=== PATIENT | female | born 1955 | race Caucasian/White ===

== ENCOUNTER 2020-03-28 09:24 | Outpatient (CLI) | payer BC, SELFPAY ==
--- NOTE | 2020-03-28 09:35 | MM_ITS ---
WS: [id number] BILATERAL DIGITAL SCREENING MAMMOGRAM WITH CAD CLINICAL INFORMATION: SCREEN HISTORY: Screening mammogram. No current complaints. COMPARISON: June 16, 2018 TECHNIQUE: Bilateral CC and MLO views. FINDINGS: Fatty-replaced breasts bilaterally. No suspicious focal mass, asymmetry, calcifications, or saas architect ural distortion. No evidence of malignancy. Punctate calcifications. MM/[id number] IMPRESSION: BI-RADS: 2-Benign FOLLOW UP: 1 Year Follow-up Recommend return to annual screening mammography.
== END 2020-03-28 09:25 | disposition home or self-care (01) ==
LOC: RADSHAW 09:30
PROVIDERS: PCP Internal Medicine; Visit Provider Internal Medicine
DX: Z12.31 Encounter for screening mammogram for malignant neoplasm of breast (principal)
CPT/HCPCS: 77067

== ENCOUNTER 2020-11-02 17:19 | Emergency (ER) | payer BC, SELFPAY ==
[2020-11-02 17:43] VITALS: BP 156/86; PULSE 80; RESP 15; TEMP 36.4; O2SAT 98; BMI 33.7
--- NOTE | 2020-11-02 18:55 | XRR_ITS ---
PROCEDURE INFORMATION: Exam: XR Right Hand Exam date and time: 11/02/2020 6:59 PM Age: 65 years old Clinical indication: Injury or trauma; Other: Cat bite; Puncture; Hand; Right TECHNIQUE: Imaging protocol: XR Right hand. Views: 1 or 2 views. COMPARISON: No relevant prior studies available. FINDINGS: Bones/joints: There is focal cortical thickening in the posterior right 2nd proximal phalanx. The bones are otherwise intact and in normal alignment. Soft tissues: Normal. XR/XR hand RT 2V [id number] IMPRESSION: 1. No fracture or acute finding. 2. Probable exostosis in the 2nd proximal phalanx.
--- NOTE | 2020-11-02 18:59 | ED_ITS ---
HPI - Animal Bite General: Chief Complaint: Animal Bite Stated Complaint: ANIMAL BITE ON R HAND Time Seen by Provider: 11/02/20 18:42 History of Present Illness: HPI narrative: cat bite to right hand complaint: animal bite Onset (ago): minute(s) (90) Animal: cat Description of animal: appeared well Mechanism: bite Location: other (right hand ) Location - Extremities: Right: hand (thenar eminence ) Associated symptoms: Reports bleeding Review of Systems General: Reports: 10 or more systems reviewed and unremarkable except in HPI and below Skin/Breast: Reports: new lesions (small laceration to right thenar eminence approximately 1.0x0.1x0.3cm.) Physical Exam Const: COMMON NORMALS: no acute distress, patient oriented x3, no limitations and alert GENERAL APPEARANCE: cooperative and comfortable ORIENTATION/CONSCIOUSNESS: Yes awake, Yes oriented to person, Yes oriented to place and Yes oriented to time HENMT: COMMON NORMALS: normocephalic, atraumatic, external ears normal, EAC's normal, TM's normal bilaterally and Normal external nose present HEAD & SCALP: normal to inspection, normocephalic and atraumatic FACE & SINUS: normal facial exam, sinuses nontender and face symmetric NOSE: Normal external nose present, Normal nares present and No nasal discharge present EXTERNAL EAR: Yes external ears normal EXTERNAL AUDITORY CANAL: EAC's normal TYMPANIC MEMBRANE: TM's normal bilaterally MOUTH: Normal oral and palatal mucosa present, lip normal and tongue normal THROAT: posterior oropharynx normal, tonsils normal and uvula midline Eye: COMMON NORMALS: Equal, round and reactive pupils present, EOMs intact bilaterally and conjunctivae normal GENERAL EYE: appearance normal, both eyes and all related structures and normal light reflex EYELID: eyelids normal CONJUNCTIVA: Yes conjunctivae normal PUPIL: Yes Equal, round and reactive pupils present EOM: Yes EOM abnormal DIRECT OPHTHALMOSCOPY: Yes normal light reflex Neck/C-Spine: COMMON NORMALS: full ROM, no lymphadenopathy, supple, no meningeal signs, no JVD and Thyroid normal GENERAL: Yes normal visual insp ection THYROID: Thyroid normal CERVICAL SPINE: Yes cervical ROM normal and Yes normal cervical lordosis Lymph: LYMPHATIC: no lymphadenopathy noted Chest: COMMONS NORMALS: normal inspection of the chest and normal palpation of entire chest wall Resp: COMMON NORMALS: normal respiratory effort, No retractions and clear to auscultation bilaterally AUSCULTATION: clear to auscultation bilaterally Cardio: COMMON NORMALS: no JVD, regular rate, regular rhythm, S1 normal heart sound present, S2 normal heart sound present, No gallops present (Cardio), No clicks present (Cardio), No murmurs present (Cardio), No rub (Cardio) and Peripheral pulses 2+ throughout RATE: regular rate RHYTHM: regular rhythm HEART SOUNDS: S1 normal heart sound present and S2 normal heart sound present PERIPHERAL PULSES: Peripheral pulses 2+ throughout GI: COMMON NORMALS: Normal to inspection, nondistended, normoactive bowel sounds present, Soft to palpation, non-tender and no masses PALPATION: Yes Soft to palpation : COMMON NORMALS: Yes no CVA tenderness and Yes normal external appearance BLADDER/KIDNEY EXAM: Yes no CVA tenderness Back/Pelvis: COMMON NORMALS: no CVA tenderness, thoracic and lumbar spine normal to inspection, no thoracic nor lumbar tenderness and thoraco-lumbar ROM normal Extremity: COMMON NORMALS: normal to inspection, full ROM, capillary refill normal, no joint enlargement, no clubbing, cyanosis or edema, no calf tenderness and no pedal edema GENERAL: Yes normal exam except as noted RIGHT UPPER EXTREMITY: Yes hand & digits (small cat bite to right thenar eminence; 1x0.1x0.3cm ) Right hand and digits: Yes ROM exam (normal) and Yes neurovascular exam (intact) Neuro: COMMON NORMALS: patient oriented x3, moves all extremities, no focal motor deficits, no sensory deficits noted and gait normal SENSORIUM/ORIENTATION: Yes alert, Yes oriented to person, Yes oriented to place and Yes oriented to time MENINGEAL SIGNS: Yes no meningeal signs Psych: COMMON NORMALS: mental status grossly normal, Normal thought process present, cooperative, normal affect, speech normal and activity/motor behavior normal SPEECH: Yes normal speech THOUGHT PROCESS: Normal thought process present Skin: COMMON NORMALS: no rashes or lesions noted, no wounds and turgor normal GENERAL SKIN EXAM: no rashes or lesions noted and turgor normal Course ED course: Pt presents to ER after cat bite that occurred two hours ago. There is cat that regularly appears in her neighborhood. She was potting a plant and the cat approached seeking attention and she gave it water. She believes it was hungry and just bit her when she put the bowl down. It did not appear ill. She is on blood thinners and cleansed the area thoroughly before coming to the er. Hemostasis achieved upon my exam. Reevaluation(s): Reevaluation #1: Pt wound has been cleansed, vaccinations given, and antibx ordered. Wound care follow up as needed. Return for rabies shots as ordered. Stable for DC. Time: 20:21 Vital Signs: Vital signs: Vital Signs Temperature 97.6 F 11/02/20 17:43 Pulse Rate 80 11/02/20 17:43 Respiratory Rate 15 11/02/20 17:43 Blood Pressure 156/86 11/02/20 17:43 Pulse Oximetry 98 11/02/20 17:43 MDM - Animal Bite Imaging Data^: Other Xray: My impression: Negative for FB or acute fx Discharge Plan Discharge Patient Disposition: Home Clinical Impression: Bite by animal Condition: Stable Prescriptions: New Augmentin 875-125 mg tablet 1 tab PO BID Qty: 20 RF: 0 Discharge Orders: Discharge ED (Routine); Ordered 11/02/20 Ordered By: Cristel Mary Referrals: Hua Luevano DO [Primary Care Provider] - Discharge Diet: Advance as tolerated Discharge Activity: Resume usual activity Patient Instructions: Opioid Safety Activity Restrictions/Additional Instructions: You will need to return to either GI or ER for shots on day 3, 7, and 14. Cleanse wound daily, apply neosporin and dry gauze, call if any concerns for infection fever. Coding Level of Care Code ED Integrity Engineer for Jim Fwhien Exam Comprehensive
[2020-11-02] MEDS: tetanus-dipt-pertussis 0.5 mL SDV IM (19:37)
[2020-11-02] MEDS: rabies vaccine 2.5 unit SDV IM (19:48)
--- NOTE | 2020-11-02 20:12 | PC.NURSE ---
Wound irrigated and cleaned and dressing applied to right hand at this time per CAFETERIA CASHIER Usman's instructions. Pt tolerated well.
[2020-11-02] MEDS: amoxicillin-clav 875-125 mg Tablet 1 TAB PO (20:22)
[2020-11-02 20:37] VITALS: BP 150/103; PULSE 92; RESP 18; O2SAT 92
--- NOTE | 2020-11-04 09:35 | DCPLANNER ---
dining room manager had message to schedule a follow up appointment for patient with Wound Care. dining room manager called the Wound Care clinic, spoke with Lennie, gave clinic patients information. A follow up appointment was scheduled for Wednesday, November 11, 2020 at 1:[address] Mckeon. dining room manager called patient and gave patient the appointment information.
--- NOTE | 2020-11-21 14:38 | DCPLANNER ---
Patient had an appointment scheduled for 11.08.20 with wound care - appointment cancelled.
== END 2020-11-02 20:37 | disposition home or self-care (01) ==
PROVIDERS: Emergency Provider Nurse Practitioner Family; PCP Internal Medicine
DX: S61.451A Open bite of right hand, initial encounter (principal); W55.01XA Bitten by cat, initial encounter; Z23 Encounter for immunization; Z20.3 Contact with and (suspected) exposure to rabies; Z29.14 Encounter for prophylactic rabies immune globulin
CPT/HCPCS: 73120; 90375; 90471; 90675; 90715; 96372; 99283

== ENCOUNTER 2022-10-26 07:47 | Outpatient (CLI) | payer BC, SELFPAY ==
--- NOTE | 2022-10-26 08:03 | MM_ITS ---
WS: [id number] VIEWS: MLO and CC views both breasts. 3D digital tomosynthesis is also included in this exam. Comparison made with prior exam of 10/02/2013, 04/15/2015, 10/09/2016, 06/16/2018, 03/28/2020,. Findings: Stable appearing nodular densities in both breasts. No significant change. Scattered fibroglandular densities are noted in both breasts. MM/[place] [id number] Impression: BI-RADS: 2-Benign FOLLOW-UP: 1 Year Follow-up This mammogram was also analyzed by the Computer Aided Detection System R2 Imag e Hiv Counselor.
== END 2022-10-26 07:48 | disposition home or self-care (01) ==
PROVIDERS: PCP Internal Medicine; Visit Provider Internal Medicine
DX: Z12.31 Encounter for screening mammogram for malignant neoplasm of breast (principal)
CPT/HCPCS: 77063; 77067

== ENCOUNTER 2023-08-03 12:30 | Outpatient (CLI) | payer BC, SELFPAY | END 2023-08-03 12:31 | disposition home or self-care (01) | LOC: SLEEP 08-04 10:54 | PROVIDERS: PCP Internal Medicine; Visit Provider Internal Medicine | DX: G47.33 Obstructive sleep apnea (adult) (pediatric) (principal); G47.36 Sleep related hypoventilation in conditions classified elsewhere; G47.10 Hypersomnia, unspecified | CPT/HCPCS: G0399 ==

== ENCOUNTER 2023-12-21 13:01 | Outpatient (CLI) | payer BC, SELFPAY ==
--- NOTE | 2023-12-21 13:06 | CT_ITS ---
WS: [id number] CT NECK TECHNIQUE: Contrast-enhanced CT of the neck with coronal and sagittal reformatted images. CLINICAL INFORMATION: PERIAPICAL ABSCESS W/O SINUS COMPARISON: None. DLP: 187.[address] scans at [facility] use at least one of these dose optimization techniques: automated e xposure control; mA and/or kV adjustment per patient size (includes targeted exams where dose is matc hed to clinical indication); or iterative reconstruction. FINDINGS: Paranasal sinuses are well aerated. Mastoid air cells are well aerated. Normal posterior na sopharynx. Normal parapharyngeal fat. Parotid glands and submandibular glands appear normal. No evide nce of supraglottic or glottic mass. Normal subglottic airway. Lung apices are well aerated. No cervi mirna lymphadenopathy. Moderate spondylitic changes cervical spine. Mild central canal stenosis C4-C5 a nd C5-C6. Mandible is normal in appearance. No evidence of drainable abscess or fluid collection. No evidence o f osteomyelitis. Dental artifact degrades some images. Chiari I malformation similar in appearance to the MRI 2013. Mild crowding at the foramen magnum. Nor mal fourth ventricle. Cerebellar tonsils extend below the arch of C1 approximately 2.1 cm below the f oramen magnum. Recommend MRI of the cervical spine to exclude cervical syrinx if not previously perfo rmed. No prior cervical spine MRI from [facility]. IMPRESSION: Dental artifact degrades some images. 1. No evidence of drainable abscess or fluid collection. No evidence of osteomyelitis. 2. Prominent Chiari I malformation with cerebellar tonsils approximately 2.1 cm below the foramen ma gnum. Normal fourth ventricle. Recommend MRI of the cervical spine to exclude cervical syrinx if not previously performed.
[2023-12-21 13:39] LABS: Blood Urea Nitrogen 17 mg/dL (8-23); Glomerular Filtration Rate 71.3 mL/min (90-130)
[2023-12-21] MEDS: iohexol 350 mg/mL 500 mL Btl (per mL) IV (13:49)
== END 2023-12-21 13:02 | disposition home or self-care (01) ==
LOC: RAD 13:01
PROVIDERS: PCP Internal Medicine; Visit Provider Specialist
DX: K04.7 Periapical abscess without sinus (principal); G93.5 Compression of brain
CPT/HCPCS: 70491; 82565; 84520; Q9967

== ENCOUNTER 2024-02-07 10:38 | Outpatient (CLI) | payer BC, SELFPAY ==
--- NOTE | 2024-02-07 10:45 | MR_ITS ---
WS: [id number] MRI CERVICAL SPINE NONCONTRAST TECHNIQUE: Sagittal T1, T2 and STIR imaging. Axial T2, gradient, and fiesta imaging. CLINICAL INFORMATION: TYPE 1 CHIARI MALFORMATION COMPARISON: CT neck 12/21/2023 FINDINGS: Mild cervical curve. Mild spondylitic changes. Disc osteophyte complexes worse at C4-C6 with small di sc osteophyte protrusions. Prominent Chiari I malformation unchanged since the prior neck CT. Cerebel lar tonsils approximately 1.9 cm below the foramen magnum. Normal fourth ventricle.Cord signal is nor mal. No visualized syrinx in the cervical cord. Mild crowding of the foramen magnum. Brainstem signal appears normal. C2-C3: Mild facet arthropathy. Spinal canal and foramen are patent. C3-C4: Mild disc osteophyte complex with endplate ridging. Moderate LEFT and no significant RIGHT for aminal narrowing. Moderate facet arthropathy. C4-C5: Disc osteophyte complex with slight indentation of the cervical cord. Mild to moderate central canal stenosis. Severe LEFT and moderate RIGHT bony foraminal narrowing. Moderate facet arthropathy. C5-C6: Disc osteophyte complex with endplate ridging. Mild central canal stenosis. Mild LEFT greater than RIGHT bony foraminal narrowing. C6-C7: Disc osteophyte complex with slight effacement of the ventral thecal sac. Moderate LEFT and mi ld RIGHT bony foraminal narrowing. C7-T1: Normal. Visualized brain stem structures: Normal. Prevertebral soft tissues: Normal. Incidental perineural cysts in the upper thoracic spine. MR/MR cervical spin wo con* [id number] IMPRESSION: 1. Chiari I malformation with cerebellar tonsils 1.9 cm below the foramen magn um. Mild crowding at the foramen magnum. Brainstem signal is normal. 2. No evidence of syrinx in the cervical cord. 3. Mild to moderate central canal stenosis C4-C5 with disc osteophyte complex and slight indentation of the cervical cord. Mild central canal stenosis C5-6 w ith slight indentation of the cervical cord. 4. Moderate to severe bony foraminal narrowing worse at LEFT C3-4, LEFT C4-5, and LEFT C6-7.
== END 2024-02-07 10:39 | disposition home or self-care (01) ==
LOC: RAD 10:39
PROVIDERS: PCP Internal Medicine; Visit Provider Internal Medicine
DX: G93.5 Compression of brain (principal); M25.78 Osteophyte, vertebrae; M47.812 Spondylosis without myelopathy or radiculopathy, cervical region; M48.02 Spinal stenosis, cervical region; G96.191 Perineural cyst
CPT/HCPCS: 72141

== ENCOUNTER 2024-07-26 08:20 | Outpatient (CLI) | payer BC, SELFPAY ==
--- NOTE | 2024-07-26 08:24 | MM_ITS ---
WS: [id number] BILATERAL SCREENING DIGITAL TOMOSYNTHESIS MAMMOGRAM WITH CAD HISTORY: SCREENING COMPARISON: 10/26/2022, 03/28/2020 Bilateral CC and MLO views with tomosynthesis and synthetic mammography submitted. Computer aided det ection analyzed. Breast composition: The breasts are almost entirely fatty. No suspicious masses, microcalcifications or architectural distortion. There are a few benign scattered calcifications within each breast. MM/MM scr tomosynthesis [id number] IMPRESSION: BI-RADS: 2 - Benign. FOLLOW UP: 1 Year Follow-up
== END 2024-07-26 08:21 | disposition home or self-care (01) ==
LOC: RAD 08:21
PROVIDERS: PCP Internal Medicine; Visit Provider Internal Medicine
DX: Z12.31 Encounter for screening mammogram for malignant neoplasm of breast (principal); R92.313 Mammographic fatty tissue density, bilateral breasts; R92.1 Mammographic calcification found on diagnostic imaging of breast
CPT/HCPCS: 77063; 77067